=== PATIENT | male | born 1960 | race Caucasian/White ===

== ENCOUNTER 2018-12-23 10:40 | Emergency (ER) | payer OTHER ==
[~2018-12-23 10:40] MED LIST: BUS10 PO; CEP500 PO; IBU800 PO; LOR5 PO; LOR5/325 PO; MULT-451 PO; PRE20 PO; ZOL5 PO
--- NOTE | 2018-12-23 10:45 | ER Report ---
History and Physical Time Seen By MD: 10:42 HPI/ROS CHIEF COMPLAINT: Right ankle pain, left shoulder pain, status post fall from roof top HISTORY OF PRESENT ILLNESS: Patient is a 58-year-old male here with complaints of the above after a fall from a metal roof approximately 8-9 feet. Patient denies loss of consciousness or being on anticoagulation. Patient reportedly hit his head on a ladder, initially landed on his right ankle falling onto his right side now complaining of left shoulder pain. Patient also complains of right- sided flank pain. Patient is neurovascularly intact, alert and oriented at time of evaluation. REVIEW OF SYSTEMS: Constitutional: No fever, no chills. Eyes: No discharge. ENT: No sore throat. Cardiovascular: No chest pain, no palpitations. Respiratory: No cough, no shortness of breath. Gastrointestinal: No abdominal pain, no vomiting. Genitourinary: No hematuria. Musculoskeletal: No back pain.+ Left shoulder pain with range of motion, right ankle pain with weightbearing, right-sided flank pain with palpation Skin: + Abrasions to the forehead and bridge of nose Neurological: Mild headache, tenderness on weightbearing of the right ankle with no obvious bony deformity, left shoulder pain with range of motion testing, right flank pain with palpation Allergies: Coded Allergies: No Known Drug Allergies (Verified , 12/23/18) Home Meds Discontinued Reported Medications Prednisone (Prednisone) 20 Mg Tab, 60 MG PO QDAY, #9 08/01/12 Acetaminophen/Hydrocodone (Lortab 5/325 Mg) 5 Mg/325 Mg Tab, 1 TAB PO Q4H PRN, #10 08/01/12 Hx Smoking: No Hx Substance Use Disorder: Yes (MARIJUANA DAILY) Hx Alcohol Use: Yes (OCC) Constitutional Vital Sign - Last 24 Hours 12/23/18 10:40 Temp 98.3 Pulse 51 Resp 15 B/P (MAP) 152/102 Pulse Ox 96 O2 Delivery Room Air Physical Exam General Appearance: The patient is alert, has no immediate need for airway protection and no signs of toxicity. Uncomfortable appearing Eyes: Pupils equal and round no pallor or injection. ENT, Mouth: Mucous membranes are moist. Respiratory: There are no retractions, lungs are clear to auscultation. Cardiovascular: Regular rate and rhythm. Gastrointestinal: Abdomen is soft and non tender, no masses, bowel sounds vi l. Neurological: Neurovascular exam intact, patient is alert and oriented Skin: Warm and dry, no rashes. Musculoskeletal: Neck is supple non tender. Mild headache, tenderness on weightbearing of the right ankle with no obvious bony deformity, left shoulder pain with range of motion testing, right flank pain with palpation DIFFERENTIAL DIAGNOSIS: After history and physical exam differential diagnosis was considered for fracture, contusion, intra-abdominal solid organ contusion/laceration, dislocation, ligamentous injury Medical Decision Making Data Points Result Diagram: 12/23/18 1105 12/23/18 1105 Laboratory Hematology Test 12/23/18 11:05 White Blood Count 7.8 k/uL (4.5-11.0) Red Blood Count 4.91 M/uL (4.00-5.60) Hemoglobin 15.9 g/dL (14.0-18.0) Hematocrit 45.8 % (42.0-52.0) Mean Corpuscular Volume 93.3 fL (80.0-96.0) Mean Corpuscular Hemoglobin 32.3 pg (26.0-33.0) Mean Corpuscular Hemoglobin Concent 34.6 g/dL (32.0-36.0) Red Cell Distribution Width 14.4 % (11.5-14.5) Platelet Count 320 K/uL (150-450) Mean Platelet Volume 7.9 fL (7.2-11.1) Neutrophils (%) (Auto) 72.4 % (39.4-72.5) Lymphocytes (%) (Auto) 18.6 % (17.6-49.6) Monocytes (%) (Auto) 6.6 % (4.1-12.4) Eosinophils (%) (Auto) 1.5 % (0.4-6.7) Basophils (%) (Auto) 0.9 % (0.3-1.4) Nucleated RBC Relative Count (auto) 0.0 /100WBC Neutrophils # (Auto) 5.6 K/uL (2.0-7.4) Lymphocytes # (Auto) 1.4 K/uL (1.3-3.6) Monocytes # (Auto) 0.5 K/uL (0.3-1.0) Eosinophils # (Auto) 0.1 K/uL (0.0-0.5) Basophils # (Auto) 0.1 K/uL (0.0-0.1) Nucleated RBC Absolute Count (auto) 0.00 K/uL Peripheral Blood Smear No Y/N Chemistry Test 12/23/18 11:05 Sodium Level 139 mmol/L (137-145) Potassium Level 4.2 mmol/L (3.5-5.0) Chloride Level 109 mmol/L (98-107) Carbon Dioxide Level 19 mmol/L (22-30) Blood Urea Nitrogen 20 mg/dl (9-21) Creatinine 0.80 mg/dl (0.66-1.25) Glomerular Filtration Rate Calc > 60.0 Random Glucose 103 mg/dl (75-110) Calcium Level 9.1 mg/dl (8.4-10.2) Total Bilirubin 1.5 mg/dl (0.2-1.3) Aspartate Amino Transf (AST/SGOT) 32 U/L (0-35) Alanine Aminotransferase (ALT/SGPT) 53 U/L (0-56) Alkaline Phosphatase 92 U/L (0-126) Total Protein 7.4 g/dl (6.3-8.2) Albumin 4.0 g/dl (3.5-5.0) Lipase 87 U/L (23-300) Coagulation Test 12/23/18 12:15 Prothrombin Time 12.5 seconds (12.0-14.4) Prothromb Time International Ratio 0.94 Activated Partial Thromboplast Time 29 seconds (23-35) EKG/Imaging Imaging Please see official radiology report for further details, no acute fractures identified. ED Course/Re-evaluation ED Course Patient is a 58-year-old male here status post fall from a 9 foot height on a m etal roof striking his head on a ladder prior to landing. Patient complained of right ankle pain, right flank pain, left shoulder pain with range of motion. CT imaging of the head, C-spine, chest abdomen pelvis, x-ray of the right ankle, left shoulder show no acute fractures. Patient was placed in a sling for comfort. Recommend follow-up with orthopedics. Prescription for tramadol provided. Return precautions were provided. Decision to Disposition Date: Dec 23, 2018 Decision to Disposition Time: 13:22 Depart Departure Latest Vital Signs Vital Signs Date Time Temp Pulse Resp B/P (MAP) Pulse Ox O2 Delivery O2 Flow Rate FiO2 12/23/18 10:40 98.3 51 15 152/102 96 Room Air Impression: Primary Impression: Fall Additional Impression: Contusion Condition: Improved Disposition: HOME OR SELF-CARE New Scripts Tramadol Hcl (TRAMADOL HCL) 50 Mg Tablet 50 MG PO Q6H PRN for PAIN, #20 TAB 0 Refills Prov: MERRY ZAVALA DO 12/23/18 Patient Instructions: Contusion in Adults (ED) Additional Instructions: No acute fractures were identified on CT or x-ray imaging. Please keep your sling in place for comfort and follow up with orthopedics as needed. You may take ibuprofen, naproxen, Tylenol as needed for primary pain control. You may take tramadol 1 tablet every 6-8 hours as needed for breakthrough pain control. Please follow-up with her primary care provider in the next 3-5 days for repeat evaluation. Please return promptly if you develop worsening pain, numbness, headaches, vision changes, chest pain, shortness breath, bowel or bladder incontinence. Problem Qualifiers MERRY ZAVALA DO Dec 23, 2018 10:45
[2018-12-23] MEDS ORDERED: fentaNYL CITR 100 MCG/2 ML AMP IVP ONE (11:05)
[2018-12-23] MEDS ORDERED: DIPHTH/TETANUS/ACEL. PERTUSSIS IM ONE (11:05)
[2018-12-23] MEDS ORDERED: IOPAMIDOL 76% 100 ML INFUS BTL 100 ML ONE (11:19)
[2018-12-23 11:34] LABS: PLATELET COUNT, AUTOMATED 320 K/uL (150-450)
--- NOTE | 2018-12-23 12:36 | RADIOLOGY IMAGING REPORT ---
FACILITY: [facility] PATIENT NAME: Tyshawn Pederson : 1960 MR: [id number] V: [id number] EXAM DATE: ORDERING PHYSICIAN: MERRY ZAVALA TECHNOLOGIST: Location: [facility] [place] Patient: Tyshawn Pederson : 1960 Visit/Account:[id number] Date of Sevice: 12/23/2018 Examination: ANKLE 2 VIEW RIGHT Comparison: None. History: pain with ROM Findings: No fracture malalignment. Joint spaces are fairly well-maintained. Calcaneal spurs with dys trophic calcification along the plantar fascia. IMPRESSION: No right ankle fracture or malalignment. Report Dictated By: Anjum Ross MD at 12/23/2018 12:26 PM Report E-Signed By: Anjum Ross MD at 12/23/2018 12:27 PM WSN:[id number]
[2018-12-23 12:46] LABS: INR 0.94
--- NOTE | 2018-12-23 12:49 | RADIOLOGY IMAGING REPORT ---
FACILITY: [facility] PATIENT NAME: Tyshawn Pederson : 1960 MR: [id number] V: [id number] EXAM DATE: ORDERING PHYSICIAN: MERRY ZAVALA TECHNOLOGIST: [place] [facility] [place] Tyshawn Pederson : 1960 Visit/Account:[id number] Date of Sevice: 12/23/2018 EXAMINATION: CT HEAD AND CERVICAL SPINE WITHOUT CONTRAST COMPARISON: None available HISTORY: Fall today. PROCEDURE: Noncontrast CT from the vertex through the skull base and multiplanar noncontrast cervical spine. One of the following dose optimization techniques was utilized in the performance of this exa m: Automated exposure control; adjustment of the mA and/or kV according to the patient's size; or use of an iterative reconstruction technique. Specific details can be referenced in the facility's rad [facility] exam operational policy. FINDINGS: CT head without contrast: Brain volume: Age-appropriate. Hemorrhage/extra-axial fluid: None. Mass effect/midline shift/edema: None. Ischemia: Song-white differentiation is preserved. Ventricles and basal cisterns: Within normal limits. Posterior fossa: Negative. Vessels: Negative. Calvarium, skull base, and scalp: 2.6 x 1.9 cm well-circumscribed low-attenuation collection with in the skin just inferior to the left ear. No acute findings. Visualized sinuses and orbits: Within normal limits. CT cervical spine without contrast: Alignment: Within normal limits. Cranio-cervical junction: Within normal limits. Vertebral bodies: No fracture. Posterior elements: Negative. Disc spaces: C6-C7 mild degenerative disc disease. No definite canal narrowing. Hardware: None. Soft tissues: Negative. Visualized upper chest: Negative. IMPRESSION: 1. No evidence of acute intracranial trauma. 2. No cervical spine fracture malalignment. 3. 2.6 x 1.9 cm well-circumscribed low-attenuation collection within the skin just inferior to the le ft ear. The appearance is most suggestive of an incidental sebaceous cyst although clinical confirmat ion is recommended. Report Dictated By: Anjum Ross MD at 12/23/2018 12:28 PM Report E-Signed By: Anjum Ross MD at 12/23/2018 12:41 PM WSN:[id number]
--- NOTE | 2018-12-23 12:50 | RADIOLOGY IMAGING REPORT ---
FACILITY: [facility] [place] PATIENT NAME: Tyshawn Pederson : 1960 MR: [id number] V: [id number] EXAM DATE: ORDERING PHYSICIAN: MERRY ZAVALA TECHNOLOGIST: Location: [facility] Patient: Tyshawn Pederson : 1960 Visit/Account:[id number] Date of Sevice: 12/23/2018 EXAMINATION: CT HEAD AND CERVICAL SPINE WITHOUT CONTRAST COMPARISON: None available HISTORY: Fall today. PROCEDURE: Noncontrast CT from the vertex through the skull base and multiplanar noncontrast cervical spine. One of the following dose optimization techniques was utilized in the performance of this exa m: Automated exposure control; adjustment of the mA and/or kV according to the patient's size; or use of an iterative reconstruction technique. Specific details can be referenced in the facility's rad [facility] exam operational policy. FINDINGS: CT head without contrast: Brain volume: Age-appropriate. Hemorrhage/extra-axial fluid: None. Mass effect/midline shift/edema: None. Ischemia: Song-white differentiation is preserved. Ventricles and basal cisterns: Within normal limits. Posterior fossa: Negative. Vessels: Negative. Calvarium, skull base, and scalp: 2.6 x 1.9 cm well-circumscribed low-attenuation collection with in the skin just inferior to the left ear. No acute findings. Visualized sinuses and orbits: Within normal limits. CT cervical spine without contrast: Alignment: Within normal limits. Cranio-cervical junction: Within normal limits. Vertebral bodies: No fracture. Posterior elements: Negative. Disc spaces: C6-C7 mild degenerative disc disease. No definite canal narrowing. Hardware: None. Soft tissues: Negative. Visualized upper chest: Negative. IMPRESSION: 1. No evidence of acute intracranial trauma. 2. No cervical spine fracture malalignment. 3. 2.6 x 1.9 cm well-circumscribed low-attenuation collection within the skin just inferior to the le ft ear. The appearance is most suggestive of an incidental sebaceous cyst although clinical confirmat ion is recommended. Report Dictated By: Anjum Ross MD at 12/23/2018 12:28 PM Report E-Signed By: Anjum Ross MD at 12/23/2018 12:41 PM WSN:[id number]
--- NOTE | 2018-12-23 12:58 | RADIOLOGY IMAGING REPORT ---
FACILITY: [facility] PATIENT NAME: Tyshawn Pederson : 1960 MR: [id number] V: [id number] EXAM DATE: ORDERING PHYSICIAN: MERRY ZAVALA TECHNOLOGIST: [place] [facility] [place]: Tyshawn Pederson : 1960 Visit/Account:[id number] Date of Sevice: 12/23/2018 Examination: CT chest, abdomen, and pelvis with contrast Comparison: CT 12/07/2008 History: fall from roof Procedure: Multiplanar contrast-enhanced imaging of the chest, abdomen, and pelvis with 75 mL intrave nous Isovue 370. One of the following dose optimization techniques was utilized in the performance of this exam: Automated exposure control; adjustment of the mA and/or kV according to the patient's siz e; or use of an iterative reconstruction technique. Specific details can be referenced in the [facility]'s radiology CT exam operational policy. Findings: CT chest: Mediastinum: Cardiac chamber size is normal. No pericardial effusion. Thoracic aorta is unremarkable although of note, evaluation for a subtle intimal injury is limited as arterial phase imaging was not performed. Lymph nodes: Negative. Lungs and pleura: Negative. Airways: Negative. Diaphragm: Intact. CT abdomen and pelvis: Liver: Right hepatic dome 2.5 cm hemangioma is unchanged. No acute findings Gallbladder and biliary system: Negative Spleen: Negative Pancreas: Negative Adrenal glands: Negative Kidneys and urinary bladder: Negative. Vessels: Minimal aortic atherosclerosis. No periaortic hemorrhage. As with the thoracic aorta, evalua tion for an intimal injury is limited. Portal venous system and IVC are unremarkable. Bowel and mesentery: Stomach, small bowel, and appendix are unremarkable. Small amount stool in the c olon. There are a few proximal sigmoid diverticula. No inflammation. Pelvic organs: Negative. Free air/free fluid: None Lymph nodes: Negative Abdominal wall and subcutaneous tissues: Small fat-containing umbilical hernia and small fat-containi ng left inguinal hernia. No acute findings. Osseous structures: Thoracolumbar spine: No vertebral body height loss or malalignment. No fracture. Lumbar spine multile sonny mild degenerative change with moderate degenerative disc disease at L5-S1. Pelvic ring: No fracture. Bilateral hip mild degenerative change. Ribs: Negative Visualized sternum, scapula, and clavicles: Negative IMPRESSION: No findings of trauma or acute disease in the chest, abdomen, or pelvis. Report Dictated By: Anjum Ross MD at 12/23/2018 12:41 PM Report E-Signed By: Anjum Ross MD at 12/23/2018 12:51 PM WSN:[id number]
[2018-12-23 13:00] VITALS: BP 125/85
--- NOTE | 2018-12-23 13:00 | RADIOLOGY IMAGING REPORT ---
FACILITY: [facility] [place] PATIENT NAME: Tyshawn Pederson : 1960 MR: [id number] V: [id number] EXAM DATE: ORDERING PHYSICIAN: MERRY ZAVALA TECHNOLOGIST: Location: [facility] [place] Patient: Tyshawn Pederson : 1960 Visit/Account:[id number] Date of Sevice: 12/23/2018 Examination: SHOULDER MIN 2 VIEWS LEFT Comparison: None. History: pain with ROM Findings: No fracture. No acute malalignment. Chronic appearing superior subluxation of the humeral h ead with narrowing of the acromiohumeral interval. No evidence of acute disease in the visualized [address]. Soft tissues are unremarkable. IMPRESSION: 1. No left shoulder fracture or malalignment. 2. Changes suggestive of chronic rotator cuff pathology. Report Dictated By: Anjum Ross MD at 12/23/2018 12:51 PM Report E-Signed By: Anjum Ross MD at 12/23/2018 12:52 PM WSN:[id number]
[2018-12-23] MEDS ORDERED: TRAM-420 PO (13:27)
== END 2018-12-23 13:30 | disposition home or self-care (01) ==
LOC: ER 10:48
DX: S40.012A Contusion of left shoulder, initial encounter (principal)
CPT/HCPCS: 70450; 71260; 72125; 73030; 73600; 74177; 83690; 85025; 85610; 85730; 90471; 90715; 96374; 99284; A4565; J3010; L0172; Q9967; 82040; 82247; 82310; 82374; 82435; 82565; 82947; 84075; 84132; 84155; 84295; 84450; 84460; 84520